=== PATIENT | male | born 1990 | race Caucasian/White ===

== ENCOUNTER 2021-04-26 18:45 | Outpatient (CLI) | payer OTHER ==
--- NOTE | 2021-04-27 09:07 | Ultrasound Report ---
PROCEDURE: Pelvic Limited or F/U INDICATIONS: RT INGUINAL PAIN TECHNIQUE: Real-time transabdominal scanning was performed of the right inguinal region, with image documentatio n. COMPARISON: None. FINDINGS: Ultrasound examination of right inguinal region shows fat-containing and reducible right inguinal her juan antonio with neck measures 8.6 mm in diameter. Herniation sac measures 2.3 x 1 cm in size. IMPRESSION: Fat-containing reducible right inguinal hernia as described in detail above. Reviewed by: Thierno Valero MD on 04/27/2021 9:06 AM PDT Approved by: Thierno Valero MD on 04/27/2021 9:06 AM PDT Station ID: [id number]
== END 2021-04-26 18:46 | disposition home or self-care (01) ==
LOC: DI 18:45
PROVIDERS: ATTEND Physician Assistant Medical
DX: R10.31 Right lower quadrant pain (principal); K40.90 Unilateral inguinal hernia, without obstruction or gangrene, not specified as recurrent